=== PATIENT | female | born 1955 ===

== ENCOUNTER 2018-07-27 10:58 | Emergency (ER) | payer SELFPAY ==
[2018-07-27 11:43] VITALS: RESP 18; TEMP 98
--- NOTE | 2018-07-27 13:08 | C.PDOC ---
History Of Present Illness 63 year old female, whose PMHx includes HTN, is sent to the ED from medical clinic for evaluation of a hypertensive emergency. Patient states she was compliant with her hypertensive medications when she was in the [place], but has not taken them since [place] for the past 3 months. Patient denies chest pain, headache, and dizziness, shortness of breath, vision change, slurred speech, facial droop, extremity numbness/weakness, or palpitations. Time Seen by Provider: 07/27/18 11:22 Chief Complaint (Nursing): High Blood Pressure History Per: Patient History/Exam Limitations: no limitations Onset/Duration Of Symptoms: Hrs Current Symptoms Are (Timing): Still Present Associated Symptoms: denies: Chest Pain, Blurred Vision, Focal Weakness Exacerbating Factor(s): Pos: Recently Missed Doses Of Medication Additional History Per: Patient Past Medical History Reviewed: Historical Data, Nursing Documentation, Vital Signs Vital Signs: Last Vital Signs Temp 98 F 07/27/18 11:35 Pulse 73 07/27/18 12:00 Resp 18 07/27/18 11:35 BP 235/121 H 07/27/18 13:03 Pulse Ox 98 07/27/18 11:35 - Medical History PMH: HTN Surgical History: No Surg Hx Family History: States: Unknown Family Hx - Social History Hx Alcohol Use: No Hx Substance Use: No - Immunization History Hx Tetanus Toxoid Vaccination: No Hx Influenza Vaccination: No Hx Pneumococcal Vaccination: No Review Of Systems Eyes: Negative for: Vision Change Cardiovascular: Negative for: Chest Pain, Palpitations Respiratory: Negative for: Shortness of Breath Neurological: Negative for: Weakness, Numbness, Headache, Dizziness Physical Exam - Physical Exam Appears: Non-toxic, No Acute Distress Skin: Normal Color, Warm, Dry Head: Atraumatic, Normacephalic Eye(s): bilateral: Normal Inspection Oral Mucosa: Moist Neck: Supple Chest: Symmetrical, No Deformity, No Tenderness Cardiovascular: Rhythm Regular, No Murmur Respiratory: Normal Breath Sounds, No Rales, No Rhonchi, No Wheezing Extremity: Normal ROM, Capillary Refill (less than 2 seconds ) Neurological/Psych: Oriented x3, Normal Speech, Normal Cognition ED Course And Treatment ECG: Interpreted By Me, Viewed By Me ECG Rhythm: Sinus Rhythm Interpretation Of ECG: Normal Sinus Rhythm at rate 71bpm. LVH. Normal axis. No acute ST/T wave changes. Rate From EC O2 Sat by Pulse Oximetry: 98 (on RA) Pulse Ox Interpretation: Normal Progress Note: Patient given Norvasc PO, Cozaar PO, Demedex PO. EKG ordered and reviewed. 194/107 Disposition Counseled Patient/Family Regarding: Diagnosis, Need For Followup, Rx Given - Disposition Referrals: [facility] [Outside] Disposition: HOME/ ROUTINE Disposition Time: 14:05 Condition: STABLE Additional Instructions: FOLLOW UP IN THE MEDICAL CLINIC IN 1-2 DAYS USE MEDICATIONS DIRECTED RETURN TO EMERGENCY ROOM IF YOU DEVELOP ANY CONCERNING SYMPTOMS SUCH CHEST PAIN, HEADACHE, DIZZINESS, VISUAL CHANGES, ETC SEGUIR EN LA CLNICA MDICA EN 1-2 RG UTILICE MEDICAMENTOS KELLIE SE DIRIGE VUELVA A LA COLT DE EMERGENCIA SI DESARROLLA CUALQUIER SNTOMAS RELACIONADOS CON EL DOLOR DE PECHO, EL DOLOR DE SOLEDAD, LA MAREZA, LOS CAMBIOS VISUALES, ETC Prescriptions: amLODIPine [Norvasc] 10 mg PO DAILY #30 tab Losartan [Cozaar] 100 mg PO DAILY #30 tab Torsemide [Demadex] 10 mg PO DAILY #30 tab Instructions: High Blood Pressure (DC) Forms: [employer] (Kazakh) Print Language: AZERI - Clinical Impression Clinical Impression: Hypertension - Scribe Statement The provider has reviewed the documentation as recorded by the Scribe (Isabella Ford) Provider Attestation: All medical record entries made by the Scribe were at my direction and personally dictated by me. I have reviewed the chart and agree that the record accurately reflects my personal performance of the history, physical exam, medical decision making, and the department course for this patient. I have also personally directed, reviewed, and agree with the discharge instructions and disposition.
[2018-07-27 14:32] VITALS: BP 194/107; PULSE 88; O2SAT 99
--- NOTE | 2018-07-28 19:45 | CARD ---
APPROVED REPORT Date of service: 07/27/2018 EKG Measurement Heart [id number] FL 120P49 [id number] <Conclusion> Normal sinus rhythm Possible Left atrial enlargement Left ventricular hypertrophy Abnormal ECG
--- NOTE | 2018-07-30 11:58 | CARD ---
APPROVED REPORT Date of service: 07/27/2018 EKG Measurement Heart [id number] FL [id number] [id number] <Conclusion> Sinus tachycardia Possible Left atrial enlargement Left ventricular hypertrophy Cannot rule out Septal infarct, age undetermined Abnormal ECG
== END 2018-07-27 14:32 | disposition home or self-care (01) ==
LOC: C.ER 10:58
DX: I10 Essential (primary) hypertension (principal)